=== PATIENT | female | born 1960 ===

== ENCOUNTER → 2018-04-14 19:29 | Outpatient (REF) | payer OTHER, SELFPAY ==
[2018-04-14 19:46] LABS: Cholesterol 216 mg/dL (140-199); HDL Cholesterol 71 mg/dL (40-60); LDL Cholesterol Calculated 121 mg/dL (<100); Triglycerides 121 mg/dL (35-150)
== END ==
LOC: LAB 19:29
PROVIDERS: Visit Provider Family Medicine
DX: E78.5 Hyperlipidemia, unspecified (principal)
CPT/HCPCS: 36415; 80061